=== PATIENT | female | born 1975 | race Caucasian/White ===

== ENCOUNTER 2018-06-09 12:59 | Observation (INO) | payer OTHER ==
[~2018-06-09] VITALS: Ht 170.2 cm; Wt 91.6 kg
[2018-06-09 13:31] VITALS: BP 138/80
[2018-06-09] MEDS ORDERED: FOLI0.4T4 PO (13:32)
[2018-06-09] MEDS ORDERED: PNV11TAB PO (13:32)
[2018-06-09 14:07] LABS: BASOPHILS % (AUTO) 0.4 % (0.0-2.0); EOSINOPHILS % (AUTO) 1.1 % (1.0-6.0); HEMATOCRIT 36.7 % (36-46); HEMOGLOBIN 13.1 g/dL (12.0-16.0); LYMPHOCYTES # (AUTO) 1.9 K/uL (1.0-4.8); LYMPHOCYTES % (AUTO) 25.3 % (22.0-44.0); MEAN CORPUSCULAR HEMOGLOBIN 32.7 pg (26.0-34.0); MEAN CORPUSCULAR HGB CONC 35.6 G/dL (31.0-37.0); MEAN CORPUSCULAR VOLUME 92 fL (80-100); MONOCYTES # (AUTO) 0.6 K/uL (0.1-1.0); MONOCYTES % (AUTO) 7.7 % (2.0-9.0); NEUTROPHILS % (AUTO) 65.5 % (40.0-70.0); PLATELET COUNT (AUTO)-OB 155 K/uL (150-450); RED BLOOD CELL COUNT(AUTO) 3.99 MIL/uL (4.00-5.20); RED CELL DISTRIBUTION WIDTH 14.5 % (11.5-14.5)
[2018-06-09 14:21] LABS: ANION GAP 10 mmol/L (8-16); CARBON DIOXIDE 24 mmol/L (22-29); CHLORIDE 104 mmol/L (98-107); CREATININE 0.68 mg/dL (0.60-1.30); GLOMERULAR FILTR. RATE CALC > 60 mL/min (>60); GLUCOSE,RANDOM 93 mg/dL (70-110); POTASSIUM 4.3 mmol/L (3.5-5.1); SODIUM SERUM 138 mmol/L (136-145); UREA NITROGEN, BLOOD 11 mg/dL (7-18)
[2018-06-09 14:27] LABS: ALANINE AMINOTRANSFERASE 19 U/L (12-78); ALBUMIN 2.6 g/dL (3.4-5.0); ALKALINE PHOSPHATASE 176 U/L (46-116); ASPARTATE AMINOTRANSFERASE 16 U/L (15-37); BILIRUBIN,TOTAL 0.3 mg/dL (0.1-1.0); TOTAL PROTEIN, SERUM 7.1 g/dL (6.4-8.2)
[2018-06-09 15:14] LABS: COLLECTION TIME,URINE 24 HR; TPROTEIN TIMED,URINE 11 mg/dL; TPROTEIN URINE, 24HRS COLL 253 mg/24Hr (0-165)
== END 2018-06-09 16:10 | disposition home or self-care (01) ==
LOC: 4S 12:59
PROVIDERS: ADMIT Obstetrics & Gynecology; ATTEND Obstetrics & Gynecology
DX: O24.419 Gestational diabetes mellitus in pregnancy, unspecified control (principal); O09.513 Supervision of elderly primigravida, third trimester; Z3A.37 37 weeks gestation of pregnancy
CPT/HCPCS: 59025; 81050; 84156; 84550

== ENCOUNTER 2018-06-12 13:15 | Inpatient (IN) | payer OTHER ==
[~2018-06-12] VITALS: Ht 169 cm; Wt 90.7 kg
[~2018-06-12 13:15] MED LIST: FOLI0.4T4 PO; PNV11TAB PO
[2018-06-12] MEDS ORDERED: RINGERS SOLUTION,LACTATED 1,000 ML IV PRN (13:56)
[2018-06-12] MEDS ORDERED: OXYGEN THERAPY IH SCH (14:00)
[2018-06-12] MEDS ORDERED: CITRIC ACID/SODIUM CITRATE 30 ML SOLUTION UDCUP PO PRN (14:00)
[2018-06-12] MEDS ORDERED: LIDOCAINE HCL/PF 1% 30 ML VIAL INJ PRN (14:00)
[2018-06-12] MEDS ORDERED: FentaNYL CITRATE-PF 100 MCG/2 ML VIAL IVP PRN (14:00)
[2018-06-12] MEDS ORDERED: METOCLOPRAMIDE HCL 5 MG/ML 2 ML VIAL IVP PRN (14:00)
[2018-06-12 14:31] LABS: BASOPHILS % (AUTO) 0.4 % (0.0-2.0); LYMPHOCYTES # (AUTO) 1.7 K/uL (1.0-4.8); LYMPHOCYTES % (AUTO) 22.6 % (22.0-44.0); MEAN CORPUSCULAR HEMOGLOBIN 32.4 pg (26.0-34.0); MEAN CORPUSCULAR HGB CONC 35.1 G/dL (31.0-37.0); MEAN CORPUSCULAR VOLUME 92 fL (80-100); MONOCYTES # (AUTO) 0.4 K/uL (0.1-1.0); MONOCYTES % (AUTO) 5.5 % (2.0-9.0); NEUTROPHILS # (AUTO) 5.4 K/uL (1.8-7.7); NEUTROPHILS % (AUTO) 70.5 % (40.0-70.0); PLATELET COUNT (AUTO)-OB 158 K/uL (150-450); RED BLOOD CELL COUNT(AUTO) 4.01 MIL/uL (4.00-5.20); RED CELL DISTRIBUTION WIDTH 14.5 % (11.5-14.5)
[2018-06-12 14:39] LABS: ANION GAP 14 mmol/L (8-16); CALCIUM, TOTAL 8.3 mg/dL (8.8-10.5); CARBON DIOXIDE 21 mmol/L (22-29); CHLORIDE 102 mmol/L (98-107); CREATININE 0.67 mg/dL (0.60-1.30); GLOMERULAR FILTR. RATE CALC > 60 mL/min (>60); GLUCOSE,RANDOM 79 mg/dL (70-110); POTASSIUM 3.9 mmol/L (3.5-5.1); SODIUM SERUM 137 mmol/L (136-145); UREA NITROGEN, BLOOD 13 mg/dL (7-18)
[2018-06-12 14:45] LABS: ALANINE AMINOTRANSFERASE 19 U/L (12-78); ALBUMIN 2.7 g/dL (3.4-5.0); ALKALINE PHOSPHATASE 187 U/L (46-116); ASPARTATE AMINOTRANSFERASE 15 U/L (15-37); BILIRUBIN,TOTAL 0.4 mg/dL (0.1-1.0); TOTAL PROTEIN, SERUM 7.2 g/dL (6.4-8.2); URIC ACID 5.5 mg/dL (2.6-7.2)
[2018-06-12] MEDS: RINGERS SOLUTION,LACTATED 1,000 ML IV SCH (14:57)
[2018-06-12] MEDS ORDERED: OXYTOCIN 30 UNITS/LACT RINGERS 500 ML IV PRN (18:41)
[2018-06-12 19:12] VITALS: BP 132/98
[2018-06-13] MEDS: RINGERS SOLUTION,LACTATED 1,000 ML IV SCH ×3 (01:02→11:18)
[2018-06-13] MEDS ORDERED: ROPIVACAINE HCL/PF 0.2% 100 ML ED ONE (10:41)
[2018-06-13] MEDS ORDERED: CeFAZolin 2 GM/DEXTROSE 50 ML IV ONE (14:00)
[2018-06-13] MEDS ORDERED: BENZOCAINE 20%/MENTHOL 56 GM SPRAY CANISTER TP PRN (14:30)
[2018-06-13] MEDS ORDERED: ACETAMINOPHEN/CODEINE 300-30 MG TABLET PO PRN (14:30)
[2018-06-13] MEDS ORDERED: LANOLIN 7 GM OINTMENT TP PRN (14:30)
[2018-06-13] MEDS ORDERED: GLYCERIN/WITCH HAZEL LEAF 40 PADS JAR TP PRN (14:30)
[2018-06-13] MEDS: IBUPROFEN 800 MG TABLET PO SCH ×2 (16:57→23:16)
[2018-06-13] MEDS: ACETAMINOPHEN/CODEINE 300-30 MG TABLET PO PRN (19:42)
[2018-06-13] MEDS: MAGNESIUM HYDROXIDE SUSPENSION 30 ML UDCUP PO SCH (21:20)
[2018-06-14] MEDS: IBUPROFEN 800 MG TABLET PO SCH ×2 (06:03→12:08)
[2018-06-14] MEDS: ACETAMINOPHEN/CODEINE 300-30 MG TABLET PO PRN (08:09)
[2018-06-14] MEDS: MAGNESIUM HYDROXIDE SUSPENSION 30 ML UDCUP PO SCH (10:32)
[2018-06-14] MEDS ORDERED: SENNA/DOCUSATE SODIUM 187-50 MG TABLET PO ONE ×2 (11:00→11:15)
[2018-06-14] MEDS ORDERED: IBUP-2071 PO (11:37)
== END 2018-06-14 15:30 | disposition home or self-care (01) | DRG 775 ==
LOC: OBSVTOIN 13:15 → 4S 13:15
PROVIDERS: ADMIT Obstetrics & Gynecology; ATTEND Obstetrics & Gynecology
PROC: 10E0XZZ Delivery of Products of Conception, External Approach (ICD-10-PCS; principal; 2018-06-13)
PROC: 0W8NXZZ Division of Female Perineum, External Approach (ICD-10-PCS; 2018-06-13)
PROC: 0UQMXZZ Repair Vulva, External Approach (ICD-10-PCS; 2018-06-13)
PROC: 3E0R3BZ Introduction of Anesthetic Agent into Spinal Canal, Percutaneous Approach (ICD-10-PCS; 2018-06-13)
PROC: 00HU33Z Insertion of Infusion Device into Spinal Canal, Percutaneous Approach (ICD-10-PCS; 2018-06-13)
PROC: 10907ZC Drainage of Amniotic Fluid, Therapeutic from Products of Conception, Via Natural or Artificial Opening (ICD-10-PCS; 2018-06-13)
DX: O16.4 Unspecified maternal hypertension, complicating childbirth (principal); O69.81X0 Labor and delivery complicated by cord around neck, without compression, not applicable or unspecified; O24.420 Gestational diabetes mellitus in childbirth, diet controlled; Z37.0 Single live birth; Z3A.38 38 weeks gestation of pregnancy; O71.82 Other specified trauma to perineum and vulva; O09.513 Supervision of elderly primigravida, third trimester
CPT/HCPCS: 83036; 84550; 86592; 86850; 86900; 86901; J0690; J2590; J2795; J7120